=== PATIENT | female | born 1970 | race Caucasian/White ===

== ENCOUNTER → 2018-08-18 | Outpatient (CLI) | payer BC, OTHER ==
--- NOTE | 2018-08-18 08:33 | Diagnostic Imaging Report ---
INDICATION: Routine screening. Comparison is made with prior mammogram from 08/29/2015 and 09/21/2012. 2-D and 3-D bilateral screening mammography was performed with a Computer Aided Detection (CAD) system. FINDINGS: Scattered fibroglandular densities are identified bilaterally. There are scattered benign-appearing calcifications bilaterally. No dominant mass or malignant appearing microcalcifications are identified. The axillae are unremarkable. IMPRESSION: No mammographic features suspicious for malignancy are identified. ACR BI-RADS Category 2: Benign findings. Result letter will be mailed to the patient. Note: At least 10% of breast cancer is not imaged by mammography. Dictated by: Dictated on workstation # [id number]
== END ==
LOC: RAD 07:19
PROVIDERS: ATTEND Family Medicine
DX: Z12.31 Encounter for screening mammogram for malignant neoplasm of breast (principal); R92.8 Other abnormal and inconclusive findings on diagnostic imaging of breast
CPT/HCPCS: 77067

== ENCOUNTER → 2020-01-12 | Outpatient (CLI) | payer BC ==
--- NOTE | 2020-01-12 08:59 | Diagnostic Imaging Report ---
INDICATION: Routine screening. Comparison is made with prior mammogram from 08/18/2018 and 08/29/2015. 2-D and 3-D bilateral screening mammography was performed with CAD. Scattered fibroglandular densities are identified bilaterally. Benign calcifications are again noted bilaterally. No mass or malignant appearing microcalcifications are seen. Axillae are unremarkable. IMPRESSION: BI-RADS Category 2 No mammographic features suspicious for malignancy are identified. ACR BI-RADS Category 2: Benign findings. Result letter will be mailed to the patient. Note: At least 10% of breast cancer is not imaged by mammography. Dictated by: Dictated on workstation # [id number]
== END ==
LOC: RAD 07:46
PROVIDERS: ATTEND Family Medicine
DX: Z12.31 Encounter for screening mammogram for malignant neoplasm of breast (principal)
CPT/HCPCS: 77063; 77067

== ENCOUNTER 2021-01-22 16:43 | Emergency (ER) | payer BC ==
[~2021-01-22] VITALS: Ht 175 cm; Wt 116.0 kg
[2021-01-22 17:42] LABS: BILIRUBIN,URINE NEGATIVE (NEGATIVE); CLARITY,URINE SL CLOUDY; COLOR,URINE YELLOW; GLUCOSE, URINE (UA) NEGATIVE (NEGATIVE); KETONES,URINE NEGATIVE (NEGATIVE); LEUKOCYTE ESTERASE ,URINE NEGATIVE (NEGATIVE); NITRITE,URINE NEGATIVE (NEGATIVE); PROTEIN,URINE NEGATIVE (NEGATIVE)
[2021-01-22 17:56] LABS: BACTERIA,URINE NEGATIVE /HPF; WBC,URINE 0-2 /HPF
[2021-01-22 17:58] LABS: BASOPHILS # (AUTO) 0.1 10^3/uL (0.0-0.1); BASOPHILS % (AUTO) 1 % (0-10); EOSINOPHILS # (AUTO) 0.3 10^3/uL (0.0-0.3); EOSINOPHILS % (AUTO) 3 % (0-10); HEMATOCRIT 39 % (35-52); HEMOGLOBIN 12.8 g/dL (11.5-16.0); LYMPHOCYTES # (AUTO) 3.6 10^3/uL (1.0-4.0); LYMPHOCYTES % (AUTO) 31 % (12-44); MEAN CORPUSCULAR HEMOGLOBIN 28 pg (25-34); MEAN CORPUSCULAR HGB CONC 33 g/dL (32-36); MEAN CORPUSCULAR VOLUME 86 fL (80-99); MEAN PLATELET VOLUME 10.8 fL (9.0-12.2); MONOCYTES # (AUTO) 0.8 10^3/uL (0.0-1.0); MONOCYTES % (AUTO) 7 % (0-12); NEUTROPHILS # (AUTO) 6.8 10^3/uL (1.8-7.8); NEUTROPHILS % (AUTO) 58 % (42-75); PLATELET COUNT 324 10^3/uL (130-400); WHITE BLOOD COUNT 11.7 10^3/uL (4.3-11.0)
--- NOTE | 2021-01-22 18:03 | Diagnostic Imaging Report ---
INDICATION: Weakness. FINDINGS: The heart size, mediastinal configuration and pulmonary vascularity are within normal limits. There is no pleural effusion, pneumothorax or pneumonia. The osseous structures are unremarkable. IMPRESSION: No acute cardiopulmonary abnormality. Dictated by: Dictated on workstation # [id number]
[2021-01-22 18:09] LABS: ALBUMIN 3.8 GM/DL (3.2-4.5); CHLORIDE 104 MMOL/L (98-107); POTASSIUM 3.9 MMOL/L (3.6-5.0); SODIUM 136 MMOL/L (135-145)
[2021-01-22 18:10] LABS: CALCIUM 8.8 MG/DL (8.5-10.1); FIBRIN DEGRADATION PRODUCTS 0.32 UG/ML (0.00-0.49); INR 0.9 (0.8-1.4); PROTHROMBIN TIME PATIENT 12.7 SEC (12.2-14.7)
[2021-01-22 18:11] LABS: GLUCOSE 100 MG/DL (70-105); TOTAL PROTEIN 7.4 GM/DL (6.4-8.2)
--- NOTE | 2021-01-22 18:11 | Diagnostic Imaging Report ---
PROCEDURE: CT head wo r/o stroke. TECHNIQUE: Multiple contiguous axial images were obtained through the brain without the use of intravenous contrast. Auto Exposure Controls were utilized during the CT exam to meet ALARA standards for radiation dose reduction. INDICATION: Neuro deficit, stroke-like symptoms, numbness COMPARISON: None available FINDINGS: No intracranial hemorrhage. No intracranial mass, mass effect, midline shift, herniation, hydrocephalus, or extra-axial fluid collection. No definite CT evidence of an acute ischemic infarction. The orbits are unremarkable. Minimal fluid and mucosal thickening within scattered ethmoidal air cells. Otherwise, the paranasal sinuses are clear. The calvarium and extracalvarial soft tissues are unremarkable. IMPRESSION: No acute intracranial abnormality. Minimal paranasal sinus disease. Dictated by: Dictated on workstation # [id number]
[2021-01-22 18:12] LABS: CARBON DIOXIDE 25 MMOL/L (21-32)
[2021-01-22 18:13] LABS: BILIRUBIN,TOTAL 0.2 MG/DL (0.1-1.0)
[2021-01-22 18:14] LABS: ALKALINE PHOSPHATASE 99 U/L (40-136)
[2021-01-22 18:15] LABS: CREATININE SERUM 0.74 MG/DL (0.60-1.30); GFR ESTIMATED 83
[2021-01-22 18:16] LABS: BUN/CREATININE RATIO 18
[2021-01-22 18:18] LABS: ALANINE AMINOTRANSFERASE 16 U/L (0-55)
--- NOTE | 2021-01-22 18:33 | ED General ---
General Chief Complaint: Neuro-Stroke Like Symptoms Stated Complaint: DIZZINESS, LEG NUMBNESS Nursing Triage Note: ARRIVED VIA AMB TO FT 1. STATES APPX 30 MINS AGO SHE BECAME DIZZY, AND HAD LEFT ARM AND LEG NUMBESS AND NOT ABLE TO USE THEM. PT STATES SX HAS RESOLVED. IAIN NOTIFEID. Source of Information: Patient Exam Limitations: No Limitations History of Present Illness Date Seen by Provider: Jan 22, 2021 Time Seen by Provider: 18:32 Initial Comments To ER with reports of dizziness that began about 30 minutes prior to arrival with seemingly loss of function of the left leg and left arm was numb. This lasted for only a few minutes before resolving on its own. No history of this. She feels fine now. Timing/Duration: 1-2 Days Severity: Moderate Associated Systoms: Denies Symptoms Allergies and Home Medications Allergies Uncoded Allergies: AVALOX (Allergy, Unknown, 01/22/21) Patient Home Medication List Home Medication List Reviewed: Yes Review of Systems Review of Systems Constitutional: see HPI EENTM: see HPI Respiratory: no symptoms reported Cardiovascular: no symptoms reported Genitourinary: no symptoms reported Musculoskeletal: no symptoms reported Skin: no symptoms reported Psychiatric/Neurological: No Symptoms Reported Hematologic/Lymphatic: No Symptoms Reported Past Fafmden-Pmwawy-Tuxljd Hx Patient Social History Smoking Status: Never a Smoker Substance use?: No Immunizations Up To Date Second COVID19 Vaccination Gee: 09/06 Physical Exam Vital Signs Vital Signs - First Documented 01/22/21 17:00 Temp 37.1 Pulse 83 Resp 16 B/P (MAP) 144/73 (96) Pulse Ox 99 O2 Delivery Room Air Capillary Refill : Less Than 3 Seconds Height, Weight, BMI Height: '" Weight: lbs. oz. kg; 37.00 BMI Method: General Appearance: No Apparent Distress, WD/WN Eyes: Bilateral Eye Normal Inspection, Bilateral Eye PERRL HEENT: PERRL/EOMI, TMs Normal Neck: Full Range of Motion, Normal Inspection Respiratory: No Accessory Muscle Use, No Respiratory Distress Cardiovascular: Regular Rate, Rhythm, Normal Peripheral Pulses Gastrointestinal: Normal Bowel Sounds, Non Tender, Soft Extremity: Normal Capillary Refill, Normal Inspection Neurologic/Psychiatric: Alert, Oriented x3 Skin: Normal Color, Warm/Dry Progress/Results/Core Measures Suspected Sepsis SIRS Temperature: Pulse: 83 Respiratory Rate: 16 Laboratory Tests 01/22/21 17:49: White Blood Count 11.7H Blood Pressure 144 /73 Mean: 96 Laboratory Tests 01/22/21 17:49: Creatinine 0.74, INR Comment 0.9, Platelet Count 324, Total Bilirubin 0.2 Results/Orders Lab Results Laboratory Tests Test 01/22/21 17:09 01/22/21 17:49 Range/Units Urine Color YELLOW Urine Clarity SL CLOUDY Urine pH 5.0 5-9 Urine Specific [place] >=1.030 1.016-1.022 Urine Protein NEGATIVE NEGATIVE Urine Glucose (UA) NEGATIVE NEGATIVE Urine Ketones NEGATIVE NEGATIVE Urine Nitrite NEGATIVE NEGATIVE Urine Bilirubin NEGATIVE NEGATIVE Urine Urobilinogen 0.2 < = 1.0 MG/DL Urine Leukocyte Esterase NEGATIVE NEGATIVE Urine RBC (Auto) NEGATIVE NEGATIVE Urine RBC NONE /HPF Urine WBC 0-2 /HPF Urine Squamous Epithelial Cells 2-5 /HPF Urine Renal Epithelial Cells NONE /HPF Urine Crystals NONE /LPF Urine Bacteria NEGATIVE /HPF Urine Casts NONE /LPF Urine Mucus NEGATIVE /LPF Urine Culture Indicated NO White Blood Count 11.7 H 4.3-11.0 10^3/uL Red Blood Count 4.59 3.80-5.11 10^6/uL Hemoglobin 12.8 11.5-16.0 g/dL Hematocrit 39 35-52 % Mean Corpuscular Volume 86 80-99 fL Mean Corpuscular Hemoglobin 28 25-34 pg Mean Corpuscular Hemoglobin Concent 33 32-36 g/dL Red Cell Distribution Width 13.3 10.0-14.5 % Platelet Count 324 130-400 10^3/uL Mean Platelet Volume 10.8 9.0-12.2 fL Immature Granulocyte % (Auto) 0 % Neutrophils (%) (Auto) 58 42-75 % Lymphocytes (%) (Auto) 31 12-44 % Monocytes (%) (Auto) 7 0-12 % Eosinophils (%) (Auto) 3 0-10 % Basophils (%) (Auto) 1 0-10 % Neutrophils # (Auto) 6.8 1.8-7.8 10^3/uL Lymphocytes # (Auto) 3.6 1.0-4.0 10^3/uL Monocytes # (Auto) 0.8 0.0-1.0 10^3/uL Eosinophils # (Auto) 0.3 0.0-0.3 10^3/uL Basophils # (Auto) 0.1 0.0-0.1 10^3/uL Immature Granulocyte # (Auto) 0.0 0.0-0.1 10^3/uL Prothrombin Time 12.7 12.2-14.7 SEC INR Comment 0.9 0.8-1.4 Activated Partial Thromboplast Time 20 L 24-35 SEC D-Dimer 0.32 0.00-0.49 UG/ML Sodium Level 136 135-145 MMOL/L Potassium Level 3.9 3.6-5.0 MMOL/L Chloride Level 104 98-107 MMOL/L Carbon Dioxide Level 25 21-32 MMOL/L Anion Gap 7 5-14 MMOL/L Blood Urea Nitrogen 13 7-18 MG/DL Creatinine 0.74 0.60-1.30 MG/DL Estimat Glomerular Filtration Rate 83 BUN/Creatinine Ratio 18 Glucose Level 100 70-105 MG/DL Calcium Level 8.8 8.5-10.1 MG/DL Corrected Calcium 9.0 8.5-10.1 MG/DL Total Bilirubin 0.2 0.1-1.0 MG/DL Aspartate Amino Transf (AST/SGOT) 14 5-34 U/L Alanine Aminotransferase (ALT/SGPT) 16 0-55 U/L Alkaline Phosphatase 99 40-136 U/L Troponin I < 0.028 <0.028 NG/ML Total Protein 7.4 6.4-8.2 GM/DL Albumin 3.8 3.2-4.5 GM/DL My Orders Orders - IAIN NEWELL [employer] SPECTROSCOPIST Cbc With Automated Diff (01/22/21 17:35) Protime With Inr (01/22/21 17:35) Partial Thromboplastin Time (01/22/21 17:35) Comprehensive Metabolic Panel (01/22/21 17:35) Fibrin Degradation Products (01/22/21 17:35) Troponin I (01/22/21 17:35) Ua Culture If Indicated (01/22/21 17:35) Chest 1 View, Ap/Pa Only (01/22/21 17:35) Ekg Tracing (01/22/21 17:35) Accucheck Stat ONCE (01/22/21 17:35) Ed Iv/Invasive Line Start (01/22/21 17:35) Ed Iv/Invasive Line Start (01/22/21 17:35) Vital Signs Stroke Patient Q15M (01/22/21 17:35) Ct Head Wo-R/O Stroke (01/22/21 17:35) O2 (01/22/21 17:35) Intake & Output 06,14,22 (01/22/21 17:35) Monitor-Rhythm Ecg Trace Only (01/22/21 17:35) Dysphagia Screening Tool (01/22/21 17:35) Post Thrombolytic Adminstratio (01/22/21 17:35) Lipid Panel (01/23/21 06:00) Accucheck Stat ONCE (01/22/21 18:33) Ed Iv/Invasive Line Start (01/22/21 18:33) Ed Iv/Invasive Line Start (01/22/21 18:33) Vital Signs Stroke Patient Q15M (01/22/21 18:33) O2 (01/22/21 18:33) Intake & Output 06,14,22 (01/22/21 18:33) Dysphagia Screening Tool (01/22/21 18:33) Post Thrombolytic Adminstratio (01/22/21 18:33) Iohexol Injection (Omnipaque 350 Mg/Ml 1 (01/22/21 18:45) Received Contrast (Hold Metformin- Contr (01/22/21 18:45) Ns (Ivpb) (Sodium Chloride 0.9% Ivpb Bag (01/22/21 18:45) Medications Given in ED Current Medications Medications Dose Ordered Sig/Kinjal Route Start Time Stop Time Status Last Admin Dose Admin Iohexol 100 ml ONCE ONCE IV 01/22/21 18:45 01/22/21 18:46 DC 01/22/21 18:42 75 ML Sodium Chloride 100 ml ONCE ONCE IV 01/22/21 18:45 01/22/21 18:46 DC 01/22/21 18:42 80 ML Vital Signs/I&O 01/22/21 17:00 Temp 37.1 Pulse 83 Resp 16 B/P (MAP) 144/73 (96) Pulse Ox 99 O2 Delivery Room Air Capillary Refill : Less Than 3 Seconds Blood Pressure Mean: 96 Departure Communication (Admissions) 2026-still alert and oriented no neurologic deficit. We will discharge to home. I spoke with Dr. Esquivel and she agrees to follow-up with the patient. Patient states she is not very compliant and she states that if she sees Dr. Esquivel every couple of years she is doing good. I will put her on a baby aspirin in the meantime. Impression Primary Impression: TIA (transient ischemic attack) Disposition: 01 HOME, SELF-CARE Condition: Stable Departure-Patient Inst. Decision time for Depature: 20:28 Referrals: STEPHANY ESQUIVEL DO (PCP/Family) Primary Care Physician Patient Instructions: Transient Ischemic Attack (DC) Add. Discharge Instructions: 1. Call Dr. Esquivel for follow-up tomorrow. Return to ER for any concerns. All discharge instructions reviewed with patient and/or family. Voiced understanding. Copy Copies To 1: STEPHANY ESQUIVEL PETER J APRN Jan 22, 2021 18:33
[2021-01-22] MEDS ORDERED: NS 100 ML (IVPB) BAG IV ONE (18:45)
[2021-01-22] MEDS ORDERED: HOLD METFORMIN - RECEIVED CONTRAST 20 ML VIAL IV SCH (18:45)
[2021-01-22] MEDS ORDERED: IOHEXOL 350 MG/ML 100 ML (OMNIPAQUE 350) VIAL IV ONE (18:45)
--- NOTE | 2021-01-22 20:03 | Diagnostic Imaging Report ---
PROCEDURE: CT angiography of the head and CT angiography of the neck with and without contrast. TECHNIQUE: Contiguous noncontrast images were obtained from the skull base through the vertex. After intravenous contrast administration, helical CT angiography of the neck was performed. Source data was reformatted into 3D MIP projections. Delayed post contrast acquisition was also obtained. Auto Exposure Controls were utilized during the CT exam to meet ALARA standards for radiation dose reduction. INDICATION: Dizziness, left arm and leg numbness and weakness. Symptoms resolved. COMPARISON: CT head from the same day. FINDINGS: The common carotid artery is widely patent, bilaterally. The right and left internal carotid arteries are widely patent. The left vertebral artery is dominant. There is no dissection or occlusion in the bilateral vertebral arteries. The anterior communicating artery is faintly visible. The anterior cerebral arteries appear normal. The middle cerebral arteries are patent. The posterior communicating artery on the right is faintly visible and the left appears faintly visible as well. The posterior cerebral arteries appear normal. The basilar artery is normal. The superior cerebellar arteries appear normal. No filling defects are seen in the dural sinuses. Perfusion appears symmetric and no enhancing lesions are seen. The ventricles are normal in size. No acute hemorrhage is seen on the precontrast images. The calvarium appears intact and visualized paranasal sinuses are clear. There are mild degenerative changes in the cervical spine. Soft tissues about the neck demonstrate no acute abnormality. IMPRESSION: 1. No acute abnormality is seen in the arteries of the head and neck. 2. No acute intracranial hemorrhage or CT evidence of acute territorial ischemia. Dictated by: Dictated on workstation # [id number]
[2021-01-22 20:45] VITALS: BP 133/81
== END 2021-01-22 20:45 | disposition home or self-care (01) ==
LOC: EDUNIT# 16:43 → ER 16:46
DX: G45.9 Transient cerebral ischemic attack, unspecified (principal)
CPT/HCPCS: 36415; 70450; 70496; 70498; 71045; 80053; 81000; 84484; 85025; 85379; 85610; 85730; 93005

== ENCOUNTER → 2021-02-14 | Outpatient (CLI) | payer BC ==
--- NOTE | 2021-02-17 10:27 | Diagnostic Imaging Report ---
INDICATION: Screening. TECHNIQUE: The current study was also evaluated with a Computer Aided Detection (CAD) system. 3D Tomographic imaging was also performed. COMPARISON: 01/12/2020, 08/18/2018, and 08/29/2015. FINDINGS: There are scattered areas of fibroglandular density. There are a few benign type calcifications. There is no dominant mass, spiculated lesion, or suspicious calcification identified. The skin, nipples, and axillae are unremarkable. IMPRESSION: Benign findings. ACR BI-RADS Category 2: Benign findings. Result letter will be mailed to the patient. Note: At least 10% of breast cancer is not imaged by mammography. Dictated by: Dictated on workstation # [id number]
== END ==
LOC: RAD 15:45
PROVIDERS: ATTEND Family Medicine
DX: Z12.31 Encounter for screening mammogram for malignant neoplasm of breast (principal)
CPT/HCPCS: 77063; 77067